=== PATIENT | female | born 1990 | race Two or more races ===

== ENCOUNTER → 2017-08-21 | Outpatient (REF) | payer OTHER | LOC: M LAB REF 21:16 | PROVIDERS: ATTEND Physician Assistant | DX: N30.01 Acute cystitis with hematuria (principal) ==

== ENCOUNTER → 2018-05-11 | Outpatient (REF) | payer OTHER | LOC: M SFHCLERA 10:34 | DX: R30.0 Dysuria (principal) | CPT/HCPCS: 87186 ==

== ENCOUNTER → 2018-05-22 | Outpatient (REF) | payer OTHER ==
[2018-05-22 15:13] LABS: CHLAMYDIA DNA AMPLIFICATION NEGATIVE (NEGATIVE); GC DNA AMPLIFICATION NEGATIVE (NEGATIVE)
== END ==
LOC: M SFHCLERA 09:29
DX: R30.0 Dysuria (principal)

== ENCOUNTER → 2018-07-31 | Outpatient (REF) | payer OTHER ==
[2018-07-31 21:01] LABS: CHLAMYDIA DNA AMPLIFICATION NEGATIVE (NEGATIVE); GC DNA AMPLIFICATION NEGATIVE (NEGATIVE)
== END ==
LOC: M SFHCLERA 09:32
DX: R30.0 Dysuria (principal)

== ENCOUNTER → 2018-09-22 | Outpatient (REF) | payer OTHER | LOC: M SFHCLERA 11:22 | DX: N39.0 Urinary tract infection, site not specified (principal) ==